=== PATIENT | female | born 1985 | race Caucasian/White ===

== ENCOUNTER 2016-10-06 18:08 | Inpatient (IN) | payer OTHER ==
[~2016-10-06] VITALS: Ht 167.6 cm; Wt 98.5 kg
[~2016-10-06 18:08] MED LIST: ALBUTEROL SULF8.5 GM IH; ALPRAZOLAM0.5 MG PO; AUGMENTIN875 MG PO; CEFDINIR300 MG PO; CHERATUSSIN AC473 ML PO; DEPAKOTE500 MG PO; DIVALPROEX SOD250 M1 PO; DIVALPROEX SOD250 MG PO; FLONASE16 G1 BOTH NARES; MACROBID100 MG PO; MONTELUKAST SOD10 MG PO; MUCINEX D ER T1 EAC1 PO; MUCINEX DM ER1 EACH PO; NAPROSYN500 MG PO; NOHOMEMEDS; PREDNISONE20 MG PO; TOBRAMYCIN SULFA5 ML BOTH EYES; ULTRAM50 MG PO; XANAX XR0.5 MG PO; XANAX1 MG PO; ZITHROMAX250 MG PO
[2016-10-06 19:38] LABS: ADD MIUA? YES; BILIRUBIN NEGATIVE; BLOOD SMALL; COLOR YELLOW ((YELLOW)); GLUCOSE (STRIP) NEGATIVE; KETONES NEGATIVE; LEUKOCYTES SMALL; NITRITE NEGATIVE; PROTEIN (STRIP) NEGATIVE; SPECIFIC GRAVITY 1.011 (1.000-1.030); UROBILINOGEN 0.2 MG/DL (0.2-1.0)
[2016-10-06 19:41] LABS: BACTERIA RARE /HPF; EPITHELIAL CELLS RARE /HPF; MUCUS NONE SEEN /LPF; RED BLOOD CELLS 0-5 /HPF (0-5); WHITE BLOOD CELLS 40-50 /HPF (0-5)
[2016-10-06 19:49] LABS: BASOPHIL COUNT 0.1 K/uL (0-0.1); EOSINOPHIL (%) 1.3 % (0-5); EOSINOPHIL COUNT 0.2 K/uL (0-0.3); HEMATOCRIT 42.6 % (36.0-46.0); IMMATURE GRANULOCYTE (%) 0.5 % (0.0-0.7); IMMATURE GRANULOCYTE COUNT 0.1 K/uL; LYMPHOCYTE COUNT 2.7 K/uL (1.0-2.8); MCH 29.2 PG (29.0-34.0); MCHC 33.8 G/DL (30.0-36.0); MCV 86.4 FL (83-99); MEAN PLAT.VOLUME 9.7 uM^3 (9.5-12.4); MONOCYTE (%) 5.6 % (3-12); NEUTROPHIL (%) 76.6 % (45-76); PLATELET COUNT 279 K/uL (156-360); RBC DIS.WIDTH-CV 11.9 % (11.8-14.6); RBC DIS.WIDTH-SD 37.9 % (39-53); RED BLOOD COUNT 4.93 M/uL (3.80-5.20)
[2016-10-06 20:16] LABS: CHLORIDE 106 mEq/L (99-109); POTASSIUM 3.3 mEq/L (3.7-5.4); SODIUM 139 mEq/L (136-147)
[2016-10-06 20:18] LABS: GLUCOSE 100 mg/dL (70-99)
[2016-10-06 20:20] LABS: ANION GAP 12 MEQ/L (2-14); TOTAL BILIRUBIN 0.5 mg/dL (0.0-1.0)
[2016-10-06 20:22] LABS: ALKALINE PHOSPHATASE 111 IU/L (3-129); GFR ESTIMATE (CALCULATED) > 59 mL/min/
[2016-10-06 20:23] LABS: UREA NITROGEN (BUN) 8 mg/dL (9-23)
[2016-10-06 20:25] LABS: LIPASE 13 U/L (1.0-51.0)
[2016-10-06 20:32] LABS: QUANTITATIVE HCG < 4.0 MIU/ML
[2016-10-06] MEDS ORDERED: MIDOL COMPLETE1 EACH PO (22:51)
[2016-10-06] MEDS ORDERED: FLONASE16 G1 BOTH NARES (22:52)
[2016-10-06] MEDS ORDERED: VENTOLIN HFA18 GM IH (22:52)
[2016-10-07 01:03] VITALS: BP 156/79
[2016-10-07 01:29] LABS: BASOPHIL COUNT 0.1 K/uL (0-0.1); EOSINOPHIL (%) 2.4 % (0-5); EOSINOPHIL COUNT 0.3 K/uL (0-0.3); IMMATURE GRANULOCYTE (%) 0.5 % (0.0-0.7); IMMATURE GRANULOCYTE COUNT 0.1 K/uL; INSTRUMENT ABS NEUTROPHIL CT 9.8 K/uL; LYMPHOCYTE COUNT 2.7 K/uL (1.0-2.8); MCH 29.6 PG (29.0-34.0); MCHC 33.7 G/DL (30.0-36.0); MCV 87.8 FL (83-99); MEAN PLAT.VOLUME 9.8 uM^3 (9.5-12.4); MONOCYTE (%) 2.7 % (3-12); MONOCYTE COUNT 0.4 K/uL (0-0.8); NEUTROPHIL (%) 73.5 % (45-76); NEUTROPHIL COUNT 9.8 K/uL (1.8-6.4); PLATELET COUNT 253 K/uL (156-360); RBC DIS.WIDTH-CV 11.9 % (11.8-14.6); RBC DIS.WIDTH-SD 38.8 % (39-53); RED BLOOD COUNT 4.67 M/uL (3.80-5.20); WHITE BLOOD COUNT 13.4 K/uL (4.1-10.2)
[2016-10-07 01:38] LABS: CHLORIDE 107 mEq/L (99-109); POTASSIUM 3.5 mEq/L (3.7-5.4); SODIUM 140 mEq/L (136-147)
[2016-10-07 01:39] LABS: GLUCOSE 74 mg/dL (70-99)
[2016-10-07 01:41] LABS: ANION GAP 8 MEQ/L (2-14)
[2016-10-07 01:43] LABS: GFR ESTIMATE (CALCULATED) > 59 mL/min/
[2016-10-07 01:44] LABS: UREA NITROGEN (BUN) 9 mg/dL (9-23)
[2016-10-07 08:50] VITALS: BP 136/72
[2016-10-07 16:46] VITALS: BP 152/90
[2016-10-07 17:52] VITALS: BP 150/85
[2016-10-07 20:04] VITALS: BP 126/79
[2016-10-08 00:20] VITALS: BP 126/60
[2016-10-08 03:45] VITALS: BP 130/62
[2016-10-08 06:52] LABS: EOSINOPHIL (%) 0 % (0-5); HEMATOCRIT 39.9 % (36.0-46.0); IMMATURE GRANULOCYTE (%) 0.6 % (0.0-0.7); IMMATURE GRANULOCYTE COUNT 0.1 K/uL; LYMPHOCYTE COUNT 0.9 K/uL (1.0-2.8); MCH 29.3 PG (29.0-34.0); MCHC 33.6 G/DL (30.0-36.0); MCV 87.3 FL (83-99); MONOCYTE (%) 3.2 % (3-12); MONOCYTE COUNT 0.5 K/uL (0-0.8); NEUTROPHIL (%) 89.7 % (45-76); PLATELET COUNT 249 K/uL (156-360); RBC DIS.WIDTH-CV 11.9 % (11.8-14.6); RBC DIS.WIDTH-SD 38.1 % (39-53); RED BLOOD COUNT 4.57 M/uL (3.80-5.20); WHITE BLOOD COUNT 14.5 K/uL (4.1-10.2)
[2016-10-08 07:24] LABS: ANION GAP 10 MEQ/L (2-14); CHLORIDE 106 MEQ/L (99-109); GFR ESTIMATE (CALCULATED) > 59 mL/min/; SAMPLE HEMOLYSIS CHECK 0; SAMPLE ICTERIC CHECK 0; SAMPLE LIPEMIA CHECK 0; SODIUM 138 MEQ/L (136-147); UREA NITROGEN (BUN) 8 mg/dL (9-23)
[2016-10-08 07:26] LABS: GLUCOSE 136 mg/dL (70-99); POTASSIUM 4.4 MEQ/L (3.7-5.4)
[2016-10-08 08:10] VITALS: BP 129/75
[2016-10-08 11:26] VITALS: BP 130/78
[2016-10-08 15:20] VITALS: BP 138/88; BP 157/71
[2016-10-08 19:06] VITALS: BP 138/77
[2016-10-09 02:45] VITALS: BP 105/57
[2016-10-09 07:13] VITALS: BP 110/50
[2016-10-09 12:32] VITALS: BP 108/50
[2016-10-09 15:58] VITALS: BP 132/76
[2016-10-09 19:37] VITALS: BP 122/68
[2016-10-09 23:49] VITALS: BP 122/68
[2016-10-10 07:07] LABS: BASOPHIL COUNT 0.1 K/uL (0-0.1); EOSINOPHIL (%) 4.1 % (0-5); EOSINOPHIL COUNT 0.3 K/uL (0-0.3); HEMATOCRIT 35.7 % (36.0-46.0); IMMATURE GRANULOCYTE (%) 0.3 % (0.0-0.7); INSTRUMENT ABS NEUTROPHIL CT 4.4 K/uL; LYMPHOCYTE COUNT 2.3 K/uL (1.0-2.8); MCH 29.9 PG (29.0-34.0); MCHC 33.6 G/DL (30.0-36.0); MEAN PLAT.VOLUME 10.1 uM^3 (9.5-12.4); MONOCYTE (%) 8.8 % (3-12); MONOCYTE COUNT 0.7 K/uL (0-0.8); NEUTROPHIL (%) 56.5 % (45-76); NEUTROPHIL COUNT 4.4 K/uL (1.8-6.4); PLATELET COUNT 215 K/uL (156-360); RBC DIS.WIDTH-CV 12.2 % (11.8-14.6); RBC DIS.WIDTH-SD 39.8 % (39-53); RED BLOOD COUNT 4.01 M/uL (3.80-5.20)
[2016-10-10 07:16] VITALS: BP 138/74
[2016-10-10 07:19] LABS: ANION GAP 9 MEQ/L (2-14); CHLORIDE 104 MEQ/L (99-109); GFR ESTIMATE (CALCULATED) > 59 mL/min/; POTASSIUM 3.8 MEQ/L (3.7-5.4); SAMPLE HEMOLYSIS CHECK 0; SAMPLE ICTERIC CHECK 0; SAMPLE LIPEMIA CHECK 0; SODIUM 138 MEQ/L (136-147); UREA NITROGEN (BUN) 9 mg/dL (9-23)
[2016-10-10 07:21] LABS: GLUCOSE 85 mg/dL (70-99)
[2016-10-10 07:24] LABS: WHITE BLOOD COUNT 7.9 K/uL (4.1-10.2)
[2016-10-10 15:22] VITALS: BP 122/70
[2016-10-10] MEDS ORDERED: TAMSULOSIN HCL0.4 MG PO (18:44)
[2016-10-10] MEDS ORDERED: DOCUSATE SODIU100 MG PO (18:45)
[2016-10-10] MEDS ORDERED: POLYETHYLENE GL17 GM PO (18:45)
[2016-10-10] MEDS ORDERED: CEFTIN500 MG PO (18:46)
[2016-10-10] MEDS ORDERED: ENDOCET 5-3251 EACH PO (18:47)
[2016-10-10] MEDS ORDERED: K-DUR20 MEQ PO (19:05)
== END 2016-10-10 19:15 | disposition home or self-care (01) | DRG 694 ==
LOC: EME 18:08 → 5EAST 23:48 → EDOF 23:48 → 5EAST 10-07 00:55
PROVIDERS: Family Medicine Sports Medicine; Physician Assistant
PROC: 0T778DZ Dilation of Left Ureter with Intraluminal Device, Via Natural or Artificial Opening Endoscopic (ICD-10-PCS; principal; 2016-10-07)
DX: N13.2 Hydronephrosis with renal and ureteral calculous obstruction (principal); N30.00 Acute cystitis without hematuria; F33.9 Major depressive disorder, recurrent, unspecified; B96.20 Unspecified Escherichia coli [E. coli] as the cause of diseases classified elsewhere; J44.9 Chronic obstructive pulmonary disease, unspecified; F41.9 Anxiety disorder, unspecified; F17.210 Nicotine dependence, cigarettes, uncomplicated; R00.0 Tachycardia, unspecified; N28.1 Cyst of kidney, acquired; K59.00 Constipation, unspecified; J30.2 Other seasonal allergic rhinitis; E66.9 Obesity, unspecified; Z87.442 Personal history of urinary calculi; Z68.35 Body mass index [BMI] 35.0-35.9, adult; Z88.2 Allergy status to sulfonamides
CPT/HCPCS: 74176; 74177; 80048; 80053; 81003; 83690; 84702; 85025; 87077; 87086; 87186; 94640; 94640 76; 99202; 99281; 99285; C1876; J0330; J0696; J1100; J1170; J1885; J2270; J2405; J3010; J3480; J7030; J7050

== ENCOUNTER 2016-10-27 20:09 | Emergency (ER) | payer OTHER ==
[~2016-10-27] VITALS: Ht 152.4 cm; Wt 94.2 kg
[~2016-10-27 20:09] MED LIST changes: +CEFTIN500 MG PO; +DOCUSATE SODIU100 MG PO; +ENDOCET 5-3251 EACH PO; +K-DUR20 MEQ PO; +MIDOL COMPLETE1 EACH PO; +POLYETHYLENE GL17 GM PO; +TAMSULOSIN HCL0.4 MG PO; +VENTOLIN HFA18 GM IH
[2016-10-27 20:34] LABS: ADD MIUA? YES; BILIRUBIN NEGATIVE; BLOOD LARGE; COLOR YELLOW ((YELLOW)); GLUCOSE (STRIP) NEGATIVE; KETONES NEGATIVE; LEUKOCYTES LARGE; NITRITE POSITIVE; PROTEIN (STRIP) 100; UROBILINOGEN 0.2 MG/DL (0.2-1.0)
[2016-10-27 20:44] LABS: HEMATOCRIT 38.2 % (36.0-46.0); MCH 29.3 PG (29.0-34.0); MCHC 33.8 G/DL (30.0-36.0); MCV 86.8 FL (83-99); MEAN PLAT.VOLUME 9.3 uM^3 (9.5-12.4); PLATELET COUNT 336 K/uL (156-360); RBC DIS.WIDTH-CV 11.4 % (11.8-14.6); RBC DIS.WIDTH-SD 36.8 % (39-53)
[2016-10-27 20:55] LABS: CHLORIDE 107 mEq/L (99-109); POTASSIUM 3.7 mEq/L (3.7-5.4); SODIUM 139 mEq/L (136-147)
[2016-10-27 20:56] LABS: GLUCOSE 103 mg/dL (70-99)
[2016-10-27 20:58] LABS: ANION GAP 9 MEQ/L (2-14)
[2016-10-27 21:00] LABS: GFR ESTIMATE (CALCULATED) > 59 mL/min/
[2016-10-27 21:01] LABS: UREA NITROGEN (BUN) 12 mg/dL (9-23)
[2016-10-27 21:03] LABS: RED BLOOD CELLS TNTC /HPF (0-5); UCUL ADDED? YES; WHITE BLOOD CELLS TNTC /HPF (0-5)
[2016-10-27 21:03] LABS: QUANTITATIVE HCG < 4.0 MIU/ML
[2016-10-27 21:04] LABS: EPITHELIAL CELLS 2+ /HPF; MUCUS 1+ /LPF
[2016-10-27 21:05] LABS: BACTERIA 3+ /HPF
[2016-10-27] MEDS ORDERED: KEFLEX500 MG PO (21:42)
[2016-10-27] MEDS ORDERED: NORCO 5/3251 TABLET PO (21:42)
[2016-10-27] MEDS ORDERED: ZOFRAN ODT4 MG PO (21:44)
[2016-10-27 22:34] VITALS: BP 169/93
== END 2016-10-27 22:38 | disposition home or self-care (01) ==
LOC: EME 20:09
PROVIDERS: Nurse Practitioner Family
DX: N12 Tubulo-interstitial nephritis, not specified as acute or chronic (principal); Z87.442 Personal history of urinary calculi; J45.909 Unspecified asthma, uncomplicated; Z87.891 Personal history of nicotine dependence
CPT/HCPCS: 80048; 81003; 84702; 85027; 87077; 87086; 87186; 99281; 99284; J0696; J1200; J2270; J2405; J7030; J7050

== ENCOUNTER 2016-10-30 09:36 | Inpatient (IN) | payer OTHER ==
[~2016-10-30] VITALS: Ht 165.1 cm; Wt 98.4 kg
[~2016-10-30 09:36] MED LIST changes: +KEFLEX500 MG PO; +NORCO 5/3251 TABLET PO; +ZOFRAN ODT4 MG PO
[2016-11-10] MEDS ORDERED: CIPRO500 MG PO (12:23)
[2016-11-10] MEDS ORDERED: TYLENOL WITH C1 EACH PO (12:24)
[2016-11-13] MEDS ORDERED: NITROFURANTOIN100 MG PO (16:06)
[2016-11-14] MEDS ORDERED: OXAYDO5 MG PO (06:04)
[2016-11-14 06:07] VITALS: BP 149/85
[2016-11-14 07:07] LABS: AMPHETAMINES QUANT VALUE 0 NG/ML; BARBITUATES QUANT VALUE 0 NG/ML; BENZODIAZEPINES QUANT VALUE 0 NG/ML; BENZODIAZEPINES, URINE SCREEN Negative (200 ng/mL); PHENCYCLIDINE QUANT VALUE 0 NG/ML
[2016-11-14] MEDS ORDERED: POLYETHYLENE GL17 GM PO (11:31)
[2016-11-14] MEDS ORDERED: ENDOCET 5-3251 EACH PO (11:31)
[2016-11-14] MEDS ORDERED: DOCUSATE SODIU100 MG PO (11:31)
[2016-11-14 12:16] LABS: INTERNAL CONTROL VALID? YES
[2016-11-14 14:08] LABS: HEMATOCRIT 37.4 % (36.0-46.0); MCH 29.7 PG (29.0-34.0); MCHC 34.2 G/DL (30.0-36.0); MCV 86.8 FL (83-99); MEAN PLAT.VOLUME 9.1 uM^3 (9.5-12.4); PLATELET COUNT 272 K/uL (156-360); RBC DIS.WIDTH-CV 11.6 % (11.8-14.6); RED BLOOD COUNT 4.31 M/uL (3.80-5.20); WHITE BLOOD COUNT 18.8 K/uL (4.1-10.2)
[2016-11-14 14:26] VITALS: BP 133/75
[2016-11-14 14:29] LABS: ANION GAP 10 MEQ/L (2-14); CHLORIDE 105 MEQ/L (99-109); GFR ESTIMATE (CALCULATED) > 59 mL/min/; GLUCOSE 122 mg/dL (70-99); POTASSIUM 4.4 MEQ/L (3.7-5.4); SAMPLE HEMOLYSIS CHECK 0; SAMPLE ICTERIC CHECK 0; SAMPLE LIPEMIA CHECK 0; SODIUM 139 MEQ/L (136-147); UREA NITROGEN (BUN) 9 mg/dL (9-23)
[2016-11-14 15:54] VITALS: BP 145/85
[2016-11-14 22:55] VITALS: BP 151/87
[2016-11-15 06:43] LABS: ANION GAP 9 MEQ/L (2-14); CHLORIDE 104 MEQ/L (99-109); GFR ESTIMATE (CALCULATED) > 59 mL/min/; GLUCOSE 110 mg/dL (70-99); POTASSIUM 4.3 MEQ/L (3.7-5.4); SAMPLE HEMOLYSIS CHECK 0; SAMPLE ICTERIC CHECK 0; SAMPLE LIPEMIA CHECK 0; SODIUM 138 MEQ/L (136-147); UREA NITROGEN (BUN) 11 mg/dL (9-23)
[2016-11-15 06:46] LABS: HEMATOCRIT 32.8 % (36.0-46.0); MCHC 33.2 G/DL (30.0-36.0); MCV 87.2 FL (83-99); MEAN PLAT.VOLUME 9.4 uM^3 (9.5-12.4); PLATELET COUNT 283 K/uL (156-360); RBC DIS.WIDTH-CV 11.9 % (11.8-14.6); RBC DIS.WIDTH-SD 37.8 % (39-53); RED BLOOD COUNT 3.76 M/uL (3.80-5.20); WHITE BLOOD COUNT 13.4 K/uL (4.1-10.2)
[2016-11-15 07:23] VITALS: BP 155/80
[2016-11-15 11:22] VITALS: BP 132/68
[2016-11-15 16:31] VITALS: BP 146/76
[2016-11-15 23:20] VITALS: BP 116/67
[2016-11-16 07:00] VITALS: BP 126/80
[2016-11-16 07:50] LABS: MCH 29.3 PG (29.0-34.0); MCHC 33.2 G/DL (30.0-36.0); MCV 88.3 FL (83-99); MEAN PLAT.VOLUME 9.6 uM^3 (9.5-12.4); PLATELET COUNT 234 K/uL (156-360); RBC DIS.WIDTH-SD 38.6 % (39-53); RED BLOOD COUNT 3.51 M/uL (3.80-5.20)
[2016-11-16 08:18] LABS: CHLORIDE 103 mEq/L (99-109); POTASSIUM 3.9 mEq/L (3.7-5.4); SODIUM 140 mEq/L (136-147)
[2016-11-16 08:20] LABS: GLUCOSE 86 mg/dL (70-99)
[2016-11-16 08:21] LABS: ANION GAP 10 MEQ/L (2-14)
[2016-11-16 08:24] LABS: GFR ESTIMATE (CALCULATED) > 59 mL/min/
[2016-11-16 08:25] LABS: UREA NITROGEN (BUN) 10 mg/dL (9-23)
[2016-11-16 15:43] VITALS: BP 141/76
[2016-11-16] MEDS ORDERED: NITROFURANTOIN100 M3 PO (16:24)
[2016-11-16 22:53] VITALS: BP 139/79
[2016-11-17 07:12] VITALS: BP 136/83
[2016-11-17 07:13] LABS: HEMATOCRIT 30.5 % (36.0-46.0); MCH 29.6 PG (29.0-34.0); MCHC 33.4 G/DL (30.0-36.0); MCV 88.4 FL (83-99); MEAN PLAT.VOLUME 9.1 uM^3 (9.5-12.4); PLATELET COUNT 227 K/uL (156-360); RBC DIS.WIDTH-CV 11.9 % (11.8-14.6); RED BLOOD COUNT 3.45 M/uL (3.80-5.20); WHITE BLOOD COUNT 6.3 K/uL (4.1-10.2)
[2016-11-17 07:33] LABS: ANION GAP 7 MEQ/L (2-14); CHLORIDE 102 MEQ/L (99-109); GFR ESTIMATE (CALCULATED) > 59 mL/min/; GLUCOSE 84 mg/dL (70-99); POTASSIUM 3.9 MEQ/L (3.7-5.4); SAMPLE HEMOLYSIS CHECK 0; SAMPLE ICTERIC CHECK 0; SAMPLE LIPEMIA CHECK 0; SODIUM 139 MEQ/L (136-147); UREA NITROGEN (BUN) 9 mg/dL (9-23)
[2016-11-17 15:36] VITALS: BP 140/70
== END 2016-11-17 18:00 | disposition home or self-care (01) | DRG 657 ==
LOC: 2SOUTH → 5EAST 11-14 05:31 → 2SOUTH 11-14 07:57 → 5EAST 11-14 14:25
PROVIDERS: Nurse Practitioner Adult Health; Urology
PROC: 0TT14ZZ Resection of Left Kidney, Percutaneous Endoscopic Approach (ICD-10-PCS; principal; 2016-11-14)
DX: C64.2 Malignant neoplasm of left kidney, except renal pelvis (principal); N20.1 Calculus of ureter; Z68.36 Body mass index [BMI] 36.0-36.9, adult; F32.9 Major depressive disorder, single episode, unspecified; F12.10 Cannabis abuse, uncomplicated; F41.9 Anxiety disorder, unspecified; Z87.440 Personal history of urinary (tract) infections
CPT/HCPCS: 80048; 80306 90; 84703; 85027; 88307; 94799; J0131; J0690; J1100; J1170; J1650; J1885; J2250; J2405; J2765; J3010; J3360; J7120

== ENCOUNTER 2016-11-10 08:43 | Emergency (ER) | payer OTHER ==
[~2016-11-10] VITALS: Ht 165.1 cm; Wt 98.2 kg
[2016-11-10 09:22] LABS: ADD MIUA? YES; BILIRUBIN NEGATIVE; BLOOD LARGE; COLOR YELLOW ((YELLOW)); GLUCOSE (STRIP) NEGATIVE; KETONES NEGATIVE; LEUKOCYTES LARGE; NITRITE POSITIVE; PROTEIN (STRIP) 100; SPECIFIC GRAVITY 1.009 (1.000-1.030); UROBILINOGEN 0.2 MG/DL (0.2-1.0)
[2016-11-10 09:26] LABS: BASOPHIL COUNT 0.1 K/uL (0-0.1); EOSINOPHIL (%) 4.2 % (0-5); EOSINOPHIL COUNT 0.5 K/uL (0-0.3); HEMATOCRIT 37.4 % (36.0-46.0); IMMATURE GRANULOCYTE (%) 0.3 % (0.0-0.7); INSTRUMENT ABS NEUTROPHIL CT 7.9 K/uL; LYMPHOCYTE COUNT 2.3 K/uL (1.0-2.8); MCH 29.5 PG (29.0-34.0); MCHC 34.5 G/DL (30.0-36.0); MCV 85.4 FL (83-99); MEAN PLAT.VOLUME 9.2 uM^3 (9.5-12.4); MONOCYTE COUNT 1.1 K/uL (0-0.8); NEUTROPHIL (%) 66.6 % (45-76); NEUTROPHIL COUNT 7.9 K/uL (1.8-6.4); PLATELET COUNT 277 K/uL (156-360); RBC DIS.WIDTH-CV 11.7 % (11.8-14.6); RBC DIS.WIDTH-SD 35.8 % (39-53); RED BLOOD COUNT 4.38 M/uL (3.80-5.20); WHITE BLOOD COUNT 11.8 K/uL (4.1-10.2)
[2016-11-10 09:36] LABS: BACTERIA 2+ /HPF; EPITHELIAL CELLS 1+ /HPF; MUCUS NONE SEEN /LPF; RED BLOOD CELLS TNTC /HPF (0-5); UCUL ADDED? YES; WHITE BLOOD CELLS TNTC /HPF (0-5)
[2016-11-10 09:37] LABS: CHLORIDE 107 mEq/L (99-109); POTASSIUM 3.7 mEq/L (3.7-5.4); SODIUM 139 mEq/L (136-147)
[2016-11-10 09:39] LABS: GLUCOSE 99 mg/dL (70-99)
[2016-11-10 09:40] LABS: ANION GAP 11 MEQ/L (2-14)
[2016-11-10 09:43] LABS: GFR ESTIMATE (CALCULATED) > 59 mL/min/
[2016-11-10 09:44] LABS: UREA NITROGEN (BUN) 8 mg/dL (9-23)
[2016-11-10] MEDS ORDERED: CIPRO500 MG PO (12:23)
[2016-11-10] MEDS ORDERED: TYLENOL WITH C1 EACH PO (12:24)
[2016-11-10 12:30] VITALS: BP 141/92
== END 2016-11-10 12:32 | disposition home or self-care (01) ==
LOC: EME 08:43
PROVIDERS: Emergency Medicine
DX: R10.32 Left lower quadrant pain (principal); N20.0 Calculus of kidney; N39.0 Urinary tract infection, site not specified; J45.909 Unspecified asthma, uncomplicated; Z87.442 Personal history of urinary calculi; Z87.891 Personal history of nicotine dependence
CPT/HCPCS: 74000; 80048; 81003; 85025; 87077; 87086; 87186; 99281; 99285; J0696; J2270; J2405; J7030; J7050